=== PATIENT | male | born 2000 | race Caucasian/White ===

== ENCOUNTER 2024-01-12 09:25 | Emergency (ER) | payer OTHER, SELFPAY ==
[2024-01-12 09:25] VITALS: BMI 17.5
[2024-01-12 09:28] VITALS: BP 128/92
[2024-01-12] MEDS: NSS 1000 IV (09:48)
--- NOTE | 2024-01-12 09:55 | ED.GENMED ---
History of Present Illness
General
Chief Complaint: Facial Problem
Source: patient
Exam Limitations: none
Time Seen by Provider: 01/12/24 09:33
Travel History
Have you had any contact with someone who has COVID-19?: No
Do you have any symptoms of coronavirus? Fever > 100 degrees, chills, cough, shortness of breath, sore throat, loss of taste or smell, muscle aches, or headache?: No
History of Present Illness
History of Present Illness:
23-year-old male with a known dental issue with his right upper premolar. Was scheduled for root canal in November but was unable to get labs that they requested prior to the procedure. Increasing pain recently. Started noticing some facial
swelling 2 days ago. Started on Augmentin 2 days ago. Facial swelling has progressed. Trouble breathing swallowing. No neck pain or neck swelling.
Past History
Past History
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
ED Past Surgical History: Other (Nasal surgery)
Social History
Personal: Single
Phy Exam
Physical Exam
Physical Exam:
GENERAL: Alert and oriented in no apparent distress
EYE: Orbits normal.
NECK: Supple, no unusual swelling or submandibular adenopathy
ENT: Pharynx without erythema. No trismus. No drooling no stridor. Swelling above the right lateral mandible towards the zygoma. No periorbital swelling. No cellulitis. Speech normal. Upper teeth appear relatively normal although some
tenderness along the gumline. No obvious large abscess
CARDIAC: Regular rate and rhythm without any obvious murmurs.
LUNGS: Clear breath sounds,normal
ABDOMEN: Soft, without focal tenderness or distention
NEUROLOGICAL: Alert and oriented , grossly non-focal
SKIN: Warm and dry, no rash or lesion, no discoloration, skin intact.
MUSCULOSKELETAL: No edema,no deformity.Good color
PSYCH: Normal and appropriate interaction.
Course
Orders/Labs/Results
Orders:
Orders
01/12/24 09:42
CT Facial Bones W/ Iv Contrast Urgent
Comment:
Reason For Exam: Right upper periodontal abscess/facial swelling
IV Insert/Care/Rem.- Treatment PRN
0.9% Sodium Chloride 1000 ml [Nss] 1,000 ml IV BOLUS
01/12/24 09:48
Basic Metabolic Panel Urgent
Complete Blood Count/With Diff Urgent
01/12/24 09:59
Clindamycin 600 mg/50 ml [Cleocin] 600 mg in 50 ml IV NOW
Abnormal Lab Results
01/12/24
09:48
Glucose 117 H mg/dl
(70-99)
01/12/24 09:48
01/12/24 09:48
Vital Signs
Initial and Last Documented VS:
Initial Vital Signs
Temp Pulse Resp BP Pulse Ox
99.0 F 54 16 128/92 98
01/12/24 09:28 01/12/24 09:28 01/12/24 09:28 01/12/24 09:28 01/12/24 09:28
Last Documented Vital Signs
Temp Pulse Resp BP Pulse Ox
99.0 F 54 16 128/92 98
01/12/24 09:28 01/12/24 09:28 01/12/24 09:28 01/12/24 09:28 01/12/24 09:28
*Radiology
Radiology exam reviewed: radiology read reviewed (Deep caries. No abscess.)
*Pulse Oximetry
Patient hypoxic: no
*Critical Care Note
Total Time (30-74mins, 75-104mins- exclusive of procedures): Not Applicable
Update Note
Update Note:
Patient has an appointment at 2 PM today. I did discuss with our hematology who felt no test was required for factor V with these procedure. Will change to clindamycin. Discharged to follow-up
ED Attending Note
-
Portions of this chart may have been created with voice recognition software.� Occasional wrong word or��sound alike� substitutions may have occurred due to the inherent limitations of voice recognition software.
Discharge Plan
Departure
Patient Disposition: Home (Routine Discharge)
Date of Disposition: 01/12/24
Time of Disposition: 11:51
Patient with high blood pressure during this ER visit?: Yes
Discharge Problem:
Severe caries right upper premolar
Instructions: Tooth Abscess (DC), BLOOD PRESSURE
Prescriptions:
New
clindamycin HCl 300 mg capsule
300 mg PO Q6H 10 Days Qty: 40 0RF
Referrals:
NONE,* [Family Provider] -
Activity Restrictions/Additional Instructions:
Stop Augmentin and start clindamycin
Make sure you take a probiotic or yogurt with extra bacteria while on the antibiotic
See your dental physicians today as scheduled
Interventions
Interventions:
*Risk Screen - Suicide Last Done: 01/12/24 09:51
*General Assessment Last Done: 01/12/24 09:51
*Neglect/Abuse Screening Last Done: 01/12/24 09:51
ED- Fall Risk Assessment Last Done: 01/12/24 09:51
*ED COVID-19 Vaccine History Last Done: 01/12/24 09:28
*Nursing Disposition Last Done: 01/12/24 12:14
ED- Neurological Assessment Last Done: 01/12/24 09:51
ED-Skin Assessment Last Done: 01/12/24 09:51
Discharge Date and Time
Discharge Date/Time: 01/12/24 12:15
[2024-01-12 10:01] LABS: % Basophils 0.8 % (0-2); % Eosinophils 1.9 % (0-6); % Immature Granulocytes 0.4 % (0-0.5); % Lymphocytes 25.5 % (20.5-51.1); % Monocytes 8.4 % (1.7-9.3); Absolute Eosinophils 0.1 10^3/uL (0-0.7); Absolute Lymphocytes 1.3 10^3/uL (1.2-3.4); Absolute Monocytes 0.4 10^3/uL (0.1-0.6); Absolute Neutrophils 3.3 10^3/uL (1.4-6.5); Hemoglobin 14.9 g/dL (13.0-18.0); Mean Corp Hgb Conc. 36.3 g/dL (33.0-37.0); Mean Corpuscular Hgb 29.9 pg (27.0-31.0); Mean Corpuscular Volume 82.3 fL (80.0-94.0); Mean Platelet Volume 10.2 fL (7.4-10.4); Nucleated Red Blood Cells % 0 % (-); Platelet Count 261 10^3/uL (130-400); Red Blood Cell Count 4.98 10^6/uL (4.70-6.10); Red Cell Dist. Width 12.8 % (11.5-14.5); White Blood Cell Count 5.2 10^3/uL (4.8-10.8)
[2024-01-12 10:16] LABS: Blood Urea Nitrogen 11 mg/dl (9-20); Carbon Dioxide 25 mmol/L (22-30); Chloride 107 mmol/L (98-107); Estimated Creatinine Clearance > 125 ml/min; Glucose 117 mg/dl (70-99); Potassium 4.1 mmol/L (3.5-5.1); Sodium 137 mmol/L (135-145); eGFR > 60.00
[2024-01-12] MEDS: CLEOCIN 50 IV (10:22)
== END 2024-01-12 12:15 | disposition home or self-care (01) ==
LOC: EMR 09:25
PROVIDERS: EMERGENCY PHYSICIAN Emergency Medicine
DX: K02.9 Dental caries, unspecified (principal); D68.2 Hereditary deficiency of other clotting factors
CPT/HCPCS: 99284; 70487; 80048; 85025; Q9967

== ENCOUNTER 2024-04-22 09:34 | Emergency (ER) | payer OTHER, SELFPAY ==
[2024-04-22 09:48] VITALS: BP 154/96
--- NOTE | 2024-04-22 10:05 | ED.PDOC.TR ---
ED Provider Triage
-
Patient seen by provider in Triage?: Seen in Triage
Patient presenting the emergency department after passing out this past Friday while at a recent [place]. States he has been felt dazed and off since that time. He notes that he has passed out 1 previous time. Denies any
nausea/vomiting/diarrhea or change in oral intake. No other concerns. He is otherwise hemodynamically stable. Labs and EKG ordered.
[2024-04-22 10:23] LABS: % Basophils 1.3 % (0-2); % Eosinophils 3.7 % (0-6); % Immature Granulocytes 0.3 % (0-0.5); % Lymphocytes 40.7 % (20.5-51.1); Absolute Eosinophils 0.1 10^3/uL (0-0.7); Absolute Lymphocytes 1.2 10^3/uL (1.2-3.4); Absolute Monocytes 0.3 10^3/uL (0.1-0.6); Absolute Neutrophils 1.3 10^3/uL (1.4-6.5); Hemoglobin 14.7 g/dL (13.0-18.0); Mean Corpuscular Hgb 29.9 pg (27.0-31.0); Mean Corpuscular Volume 85.4 fL (80.0-94.0); Mean Platelet Volume 10.6 fL (7.4-10.4); Nucleated Red Blood Cells % 0 % (-); Platelet Count 240 10^3/uL (130-400); Red Blood Cell Count 4.92 10^6/uL (4.70-6.10); Red Cell Dist. Width 12.3 % (11.5-14.5)
[2024-04-22 10:31] LABS: ALT (SGPT) 21 U/L (0-50); AST (SGOT) 29 U/L (17-59); Albumin 4.5 g/dl (3.5-5.0); Alkaline Phosphatase 55 U/L (38-126); Blood Urea Nitrogen 15 mg/dl (9-20); Calcium 9.3 mg/dl (8.4-10.2); Carbon Dioxide 26 mmol/L (22-30); Chloride 105 mmol/L (98-107); Glucose 94 mg/dl (70-99); Sodium 137 mmol/L (135-145); Total Protein 6.7 g/dl (6.3-8.2); eGFR > 60.00
--- NOTE | 2024-04-22 10:57 | ED.GENMED ---
History of Present Illness
General
Chief Complaint: Fainting/Passed Out
Time Seen by Provider: 04/22/24 10:51
Travel History
Have you had any contact with someone who has COVID-19?: No
Do you have any symptoms of coronavirus? Fever > 100 degrees, chills, cough, shortness of breath, sore throat, loss of taste or smell, muscle aches, or headache?: No
History of Present Illness
History of Present Illness:
HPI: Patient presenting the emergency department after passing out this past Friday while at a recent car show event in the [facility]. States he has been felt dazed and off since that time. He notes that he has passed out 1 previous time. Denies
any nausea/vomiting/diarrhea or change in oral intake. No other concerns. He is otherwise hemodynamically stable. EMS was called at that time however ultimately he did not go to the hospital. He did not have any chest pain however he did report
some urinary incontinence at that time. He does not necessarily have a seizure disorder but states that he did have a seizure shortly after .
EXAM:
GENERAL: Well appearing in no distress
HEENT: Moist oral mucosa
CARDIOVASCULAR: No murmurs, normal heart rate, regular rhythm, No chest wall tenderness
PULMONARY: No respiratory distress, breath sounds are clear and equal
ABDOMEN: Soft with no peritoneal signs, no tenderness
NEUROLOGIC: Excellent strength all extremities, no coordination deficits
PSYCHIATRIC: Appropriate mental status, normal insight and judgement
EXTREMITIES: Nontender, no edema, moves all extremities equally
SKIN: No rash, no lesions
TIME OF INITIAL ENCOUNTER: 11:10 AM
NUMBER AND COMPLEXITY OF PROBLEMS ADDRESSED AT THE ENCOUNTER
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
� Acute Exacerbation and/or Progression of Chronic Illness: This is an acute problem
� Differential Diagnosis includes: Dehydration, electrolyte abnormality, anemia, seizure
AMOUNT AND/OR COMPLEXITY OF DATA TO BE REVIEWED AND ANALYZED
� I performed an independent evaluation of and my interpretation is:
EKG: Sinus 50, nonspecific ST abnormality, IVCD, QTc [address]:
X-rays:
Laboratory Studies: CBC and chemistries unremarkable other than mild leukopenia
Other:
� Review of other/old records: I reviewed records, the patient had ED visit related to left toe fracture
� Clinical information was obtained by an independent historian: None needed
� Prescriptions/Medications Considered but not given:
� Further testing considered but not performed:
RISK OF COMPLICATIONS AND/OR MORBIDITY OR MORTALITY OF PATIENT MANAGEMENT
� Social determinants of health affecting care: Lives at home
� Discussion with other providers:
� Escalation of care including admission/observation vs risk of discharge considered: The patient is well-appearing however has some ongoing vague lightheadedness since the event. Since he did have urinary incontinence at the
time I do recommend that he follows up with neurology however I have very low suspicion this is truly a seizure. ED workup unremarkable.
Past History
Past History
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
ED Past Surgical History: Other (Nasal surgery)
Social History
Personal: Single
Phy Exam
Physical Exam
Physical Exam:
See HPI
Course
Orders/Labs/Results
Orders:
Orders
04/22/24 09:52
Electrocardiogram (*1) Urgent
Reason for Study: Other
Other Reason for Exam: faint feeling
EKG- Treatment ONCE
04/22/24 10:07
Complete Blood Count/With Diff Urgent
Comprehensive Metabolic Panel Urgent
Abnormal Lab Results
04/22/24
10:07
WBC 3.0 L 10^3/uL
(4.8-10.8)
MPV 10.6 H fL
(7.4-10.4)
Absolute Neuts (auto) 1.3 L 10^3/uL
(1.4-6.5)
Monocytes % 10.0 H %
(1.7-9.3)
04/22/24 10:07
04/22/24 10:07
Vital Signs
Initial and Last Documented VS:
Initial Vital Signs
Temp Pulse Resp BP Pulse Ox
98.1 F 54 16 154/96 98
04/22/24 09:48 04/22/24 09:48 04/22/24 09:48 04/22/24 09:48 04/22/24 09:48
Last Documented Vital Signs
Temp Pulse Resp BP Pulse Ox
98.1 F 45 16 126/69 97
04/22/24 09:48 04/22/24 11:53 04/22/24 11:53 04/22/24 11:53 04/22/24 11:53
*Critical Care Note
Total Time (30-74mins, 75-104mins- exclusive of procedures): Not Applicable
ED Attending Note
-
Portions of this chart may have been created with voice recognition software.� Occasional wrong word or��sound alike� substitutions may have occurred due to the inherent limitations of voice recognition software.
Discharge Plan
Departure
Patient Disposition: Home (Routine Discharge)
Date of Disposition: 04/22/24
Time of Disposition: 11:38
Patient with high blood pressure during this ER visit?: Yes
Discharge Problem:
Syncope and collapse
Instructions: Syncope (Fainting) (DC)
Prescriptions:
No Action
clindamycin HCl 300 mg capsule
300 mg PO Q6H 10 Days Qty: 40 0RF
Referrals:
Kory Lee MD [Active] - Follow up in 5-7 days
Willard Lopez DO [Family Provider] -
Activity Restrictions/Additional Instructions:
Since you state you had urinary incontinence at the time of this event, it is possible although not likely, that this was seizure related. I have therefore given you the contact information for local neurologist to follow-up with, Dr. Lee.
Interventions
Interventions:
*ED COVID-19 Vaccine History Last Done: 04/22/24 09:48
*Nursing Disposition Last Done: 04/22/24 11:54
ED- Cardiac Assessment Last Done: 04/22/24 11:53
ED- Neurological Assessment Last Done: 04/22/24 11:53
Discharge Date and Time
Discharge Date/Time: 04/22/24 11:54
Print Language: QATARI
[2024-04-22 11:53] VITALS: BP 126/69
== END 2024-04-22 11:54 | disposition home or self-care (01) ==
LOC: EMR 09:34
PROVIDERS: Physician Assistant Medical; EMERGENCY PHYSICIAN Emergency Medicine; FAMILY PHYSICIAN Pediatrics
DX: R55 Syncope and collapse (principal); R03.0 Elevated blood-pressure reading, without diagnosis of hypertension; D68.51 Activated protein C resistance; Z88.7 Allergy status to serum and vaccine; Z91.018 Allergy to other foods
CPT/HCPCS: 99283; 80053; 85025; 93005